=== PATIENT | male | born 1955 | race Caucasian/White ===

== ENCOUNTER 2018-03-10 10:30 | Outpatient (RCR) | payer BC, SELFPAY ==
--- NOTE | 2018-02-08 15:17 | HMH.PTOPEV ---
PT Outpatient Evaluation Rehab PT Outpatient Evaluation Start: 02/08/18 14:56 Freq: Status: Active Protocol: Document 02/08/18 14:56 DIONTEMO (Rec: 02/08/18 15:17 RADHA [id number]) Electronically Signed By Eduar Antoine, PT 02/08/18 14:56 Outpatient Therapy Subjective History Subjective History Patient is a 62 year old male presenting to outpatient PT with reports of L buttock pain of insidious onset starting 2 .5 weeks ago. Pt reports being treated by a chiropractor for 4 visits with no improvements noted. Pt reports pain is worse with sitting, hunching over or lifting. Hx of CABG, L shoulder pain. No diagnostics to report. Chief Complaint Pain Symptom Type Ache Sharp Shooting Symptoms Aggravated By Sitting Bending/Stooping Prior Functional Limitations None Current Functional Limitations Lifting Housework Sleeping Sitting Recreation Activity Bending/Stooping Symptom Description Constant but Variable Level of pain today (0-10) 5 Pain scale - at its best (0-10) 3 Pain scale - at its worst (0-10) 8 Lumbopelvic Eval Posture Lumbar Spine Posture Standing Position Decreased Lordosis Palapation tenderness left buttock tenderness Yes: piriformis Range of Motion Lumbar Spine Active Flexion Range of 58 Motion (degrees) Lumbar Spine Active Extension Range of 22 Motion (degrees) Left Lumbar Spine Lateral Flexion Active 25 Range of Motion (degrees) Right Lumbar Spine Lateral Flexion 25 Active Range of Motion (degrees) Lumbar Spine ROM Limitations Soft Tissue Tightness Manual Muscle Test Bilateral Knee Extension Strength Grade 5 Normal Knee Flexion Strength Grade 5 Normal Hip Flexion Strength Grade 5 Normal Hip Abduction Strength Grade 5 Normal Hip Adduction Strength Grade 5 Normal Hip External Rotation Strength Grade 5 Normal Hip Internal Rotation Strength Grade 5 Normal Hip Extension Strength Grade 5 Normal Extensor Hallucis Longus Strength Grade 5 Normal Ankle Dorsiflexion Strength Grade 5 Normal Gastronemius/Soleus Strength Grade 5 Normal DTR Rt Patellar 2+ Lt Lua
== END 2018-03-10 10:31 | disposition home or self-care (01) ==
LOC: PT 10:30
PROVIDERS: PCP Internal Medicine; Visit Provider Internal Medicine
DX: M54.5 Low back pain (principal)
CPT/HCPCS: 97010; 97012; 97014; 97110; 97140; 97163; G0283

== ENCOUNTER → 2018-03-23 14:31 | Outpatient (CLI) | payer BC, SELFPAY ==
--- NOTE | 2018-03-23 14:37 | XR_ITS ---
EXAM: XR lumbar spine min 4V HISTORY: ITS.REASON: BACK PAIN ORDERING PHYSICIAN: Bridger Chung PATIENT AGE: 62 years COMPARISON: None FINDINGS: There is minimal lumbar curvature convex left. Degenerative disc disease is present at T12-L1 L1-L2 and L5-S1. Mild facet arthritic changes are present at L4-L5 and L5-S1. No fracture or dislocation. No lytic or blastic change. There is some mild sclerosis of the left SI joint superiorly. Atherosclerotic calcification of the aorta noted. IMPRESSION: Lumbar spondylosis with degenerative disc disease and facet arthritic change
== END ==
PROVIDERS: PCP Internal Medicine; Visit Provider Internal Medicine
DX: M54.89 Other dorsalgia (principal)
CPT/HCPCS: 72110

== ENCOUNTER → 2022-03-17 12:56 | Outpatient (CLI) | payer MEDICARE, SELFPAY ==
[2022-03-17 14:02] LABS: Basophils # 0.1 K/mm3 (0-0.2); Eosinophils # 0.3 K/mm3 (0.0-0.4); Eosinophils % 4.5 % (0.1-12.0); Hematocrit 43.4 % (42.0-52.0); Hemoglobin 13.6 g/dL (14.1-18.0); Lymphocytes # 1.5 K/mm3 (0.7-4.5); Lymphocytes % 25.2 % (10-50); Mean Corpuscular HGB Conc 31.2 g/dL (31.8-35.4); Mean Corpuscular Hemoglobin 28.8 pg (27.0-31.2); Mean Corpuscular Volume 92.1 fl (80-94); Mean Platelet Volume 8.9 fl (7.4-10.4); Monocytes # 0.6 K/mm3 (0.1-1.0); Monocytes % 9.8 % (1.7-9.3); Neutrophils # 3.5 K/mm3 (1.8-7.8); Neutrophils % 59.4 % (37.0-80.0); Platelet Count 250 K/mm3 (142-424); Red Blood Count 4.72 M/mm3 (4.60-6.20); White Blood Count 5.8 K/mm3 (4.8-10.8)
[2022-03-17 14:46] LABS: Alanine Aminotransferase 38 U/L (12-78); Albumin Level 4.7 g/dl (3.5-5.0); Alkaline Phosphatase 61 U/L (38-126); Anion Gap 13.2 mEq/L (5-15); Aspartate Amino Transferase 49 U/L (17-59); Blood Urea Nitrogen 31 mg/dl (9-20); Calcium 9.6 mg/dl (8.4-10.2); Carbon Dioxide 26 mmol/L (22.0-30.0); Chloride 104 mmol/L (98-107); Chol/HDL Ratio 4.2 (1-3.5); Cholesterol 123 mg/dl (140-200); Estimated Glomerular Filt Rate 40 ml/min (>60); GFR (African American) 49 ML/MIN (>60); Globulin 2.3 g/dL (1.3-3.2); Glucose 107 mg/dl (74-100); HDL Cholesterol 29 mg/dl (40-60); Potassium 5.2 mmoL/L (3.5-5.1); Sodium 138 mmol/L (136-145); Triglycerides 162 mg/dl (30-150); VLDL Cholesterol 32 mg/dL (0-40)
[2022-03-17 15:02] LABS: T4 (Thyroxine) 5.6 ug/dl (5.53-11.0)
[2022-03-17 15:16] LABS: Prostate Specific Ag Screen 1.2 ng/ml (0.0-4.0); Thyroid Stimulating Hormone 4.84 uIU/mL (0.465-4.68)
[2022-03-19 10:07] LABS: Direct LDL Cholesterol 61 mg/dL (100-129)
[2022-03-19 11:12] LABS: Triiodothyronine (T3) Total 97 ng/dL (71-180)
== END ==
PROVIDERS: PCP Internal Medicine; Visit Provider Internal Medicine
DX: I25.10 Atherosclerotic heart disease of native coronary artery without angina pectoris (principal); I25.2 Old myocardial infarction; I10 Essential (primary) hypertension; R94.6 Abnormal results of thyroid function studies; E78.5 Hyperlipidemia, unspecified; N40.1 Benign prostatic hyperplasia with lower urinary tract symptoms; Z12.5 Encounter for screening for malignant neoplasm of prostate
CPT/HCPCS: 80053; 80061; 84436; 84443; 84480; 85025; G0103

== ENCOUNTER → 2023-06-23 12:02 | Outpatient (CLI) | payer MEDICARE, SELFPAY ==
[2023-06-23 13:51] LABS: Basophils # 0.1 K/mm3 (0-0.2); Eosinophils # 0.3 K/mm3 (0.0-0.4); Eosinophils % 4.2 % (0.1-12.0); Hematocrit 43.2 % (42.0-52.0); Hemoglobin 14.5 g/dL (14.1-18.0); Lymphocytes # 1.2 K/mm3 (0.7-4.5); Lymphocytes % 21.3 % (10-50); Mean Corpuscular HGB Conc 33.5 g/dL (31.8-35.4); Mean Corpuscular Hemoglobin 30.2 pg (27.0-31.2); Mean Corpuscular Volume 90.1 fl (80-94); Mean Platelet Volume 8.9 fl (7.4-10.4); Monocytes # 0.6 K/mm3 (0.1-1.0); Monocytes % 10.6 % (1.7-9.3); Neutrophils # 3.7 K/mm3 (1.8-7.8); Neutrophils % 62.9 % (37.0-80.0); Platelet Count 248 K/mm3 (142-424); Red Cell Distribution Width 15.6 % (11.5-17.5); White Blood Count 5.8 K/mm3 (4.8-10.8)
[2023-06-23 14:51] LABS: Alanine Aminotransferase 40 U/L (12-78); Albumin/Globulin Ratio 1.9 (1.1-1.8); Alkaline Phosphatase 52 U/L (38-126); Anion Gap 19.1 mEq/L (5-15); Aspartate Amino Transferase 46 U/L (17-59); Bilirubin,Total 0.6 mg/dl (0.2-1.3); Blood Urea Nitrogen 29 mg/dl (9-20); Calcium 9.4 mg/dl (8.4-10.2); Carbon Dioxide 25 mmol/L (22.0-30.0); Chloride 103 mmol/L (98-107); Chol/HDL Ratio 4.6 (1-3.5); Cholesterol 138 mg/dl (140-200); Estimated Glomerular Filt Rate 43 ml/min (>60); GFR (African American) 52 ML/MIN (>60); Globulin 2.6 g/dL (1.3-3.2); Glucose 106 mg/dl (74-100); HDL Cholesterol 30 mg/dl (40-60); Potassium 5.1 mmoL/L (3.5-5.1); Sodium 142 mmol/L (136-145); Total Protein,Serum 7.6 g/dl (6.3-8.2); Triglycerides 155 mg/dl (30-150); VLDL Cholesterol 31 mg/dL (0-40)
[2023-06-23 15:24] LABS: Prostate Specific Ag Screen 1.4 ng/ml (0.0-4.0)
== END ==
PROVIDERS: PCP Internal Medicine; Visit Provider Internal Medicine
DX: Z12.5 Encounter for screening for malignant neoplasm of prostate; I11.9 Hypertensive heart disease without heart failure; I25.10 Atherosclerotic heart disease of native coronary artery without angina pectoris; I25.2 Old myocardial infarction; K21.9 Gastro-esophageal reflux disease without esophagitis; N40.1 Benign prostatic hyperplasia with lower urinary tract symptoms
CPT/HCPCS: 80053; 80061; 85025; G0103

== ENCOUNTER 2024-06-28 11:16 | Outpatient (CLI) | payer MEDICARE, SELFPAY ==
[2024-06-28 10:46] LABS: Basophils # 0.1 K/mm3 (0-0.2); Basophils % 0.9 % (0.1-2.0); Eosinophils # 0.2 K/mm3 (0.0-0.4); Hematocrit 41.4 % (42.0-52.0); Hemoglobin 13.9 g/dL (14.1-18.0); Lymphocytes # 1.6 K/mm3 (0.7-4.5); Mean Corpuscular HGB Conc 33.5 g/dL (31.8-35.4); Mean Corpuscular Hemoglobin 28.9 pg (27.0-31.2); Mean Corpuscular Volume 86.3 fl (80-94); Mean Platelet Volume 7.8 fl (7.4-10.4); Monocytes # 0.5 K/mm3 (0.1-1.0); Monocytes % 8.7 % (1.7-9.3); Neutrophils # 3.6 K/mm3 (1.8-7.8); Neutrophils % 59.5 % (37.0-80.0); Platelet Count 207 K/mm3 (142-424); Red Blood Count 4.79 M/mm3 (4.60-6.20); Red Cell Distribution Width 15.7 % (11.5-17.5)
[2024-06-28 10:57] LABS: Alanine Aminotransferase 34 U/L (12-78); Albumin Level 4.7 g/dl (3.5-5.0); Albumin/Globulin Ratio 2.2 (1.1-1.8); Alkaline Phosphatase 53 U/L (38-126); Anion Gap 13.9 mEq/L (5-15); Aspartate Amino Transferase 41 U/L (17-59); Bilirubin,Total 0.8 mg/dl (0.2-1.3); Blood Urea Nitrogen 30 mg/dl (9-20); Calcium 9.2 mg/dl (8.4-10.2); Carbon Dioxide 25 mmol/L (22.0-30.0); Chloride 107 mmol/L (98-107); Chol/HDL Ratio 3.8 (1-3.5); Cholesterol 124 mg/dl (140-200); Estimated Glomerular Filt Rate 43 ml/min (>60); GFR (African American) 52 ML/MIN (>60); Globulin 2.1 g/dL (1.3-3.2); Glucose 107 mg/dl (74-100); HDL Cholesterol 33 mg/dl (40-60); Potassium 4.9 mmoL/L (3.5-5.1); Sodium 141 mmol/L (136-145); Total Protein,Serum 6.8 g/dl (6.3-8.2); Triglycerides 188 mg/dl (30-150); VLDL Cholesterol 38 mg/dL (0-40)
[2024-06-28 11:29] LABS: Prostate Specific Ag Screen 1.7 ng/ml (0.0-4.0)
== END 2024-06-28 23:59 | disposition home or self-care (01) ==
LOC: LAB.DROPOF 11:17
PROVIDERS: PCP Internal Medicine; Visit Provider Internal Medicine
DX: I10 Essential (primary) hypertension (principal); E78.5 Hyperlipidemia, unspecified; Z12.5 Encounter for screening for malignant neoplasm of prostate
CPT/HCPCS: 80053; 80061; 85025; G0103

== ENCOUNTER 2024-12-18 13:57 | Outpatient (CLI) | payer MEDICARE, SELFPAY ==
--- NOTE | 2024-12-18 14:10 | XR_ITS ---
FINAL REPORT CLINICAL HISTORY: Right 5th metatarsal pain COMPARISON: None FINDINGS: RIGHT FOOT Two views of the right foot were obtained. There is no acute fracture or dislocation. The joint spaces are well-preserved. There is no acute soft tissue abnormality. There is a moderate plantar spur. IMPRESSION: No acute abnormality identified. Reviewed, Interpreted and Dictated by Leonardo Costa MD Transcribed by Isabel Tinajero Authenticated and [facility]
== END 2024-12-18 23:59 | disposition home or self-care (01) ==
LOC: RAD 13:57
PROVIDERS: PCP Internal Medicine; Visit Provider Internal Medicine
DX: M77.31 Calcaneal spur, right foot (principal)
CPT/HCPCS: 73620

== ENCOUNTER 2025-06-27 09:40 | Outpatient (CLI) | payer MEDICARE, SELFPAY ==
--- OUTSIDE RECORDS SUMMARY | 2025-05-01 08:30 | XMS_ITS | Encounter Summary ---
Author Organization Healthcare Address [address] [place] [address] Care Team Providers Care Cook Helper Dessert Name Role Phone Bridger Chung MD Primary Care Provider [phone] Reason for Visit * Reason Comments Consult Encounter Details Date Type Department Care Team (Late st Contact Info) Description 05/01/2025 9:30 AM EDT Office Visit [facility] [address] [place] [address] Jenna Marcial M, DO [address] [place] [address] Left ankle pain, unspecified chronicity (Primary Dx); Achilles tendinitis, left leg Social History Tobacco Use Types Packs/Day Years Used Date Smoking Tobacco: Former Smokeless Tobacco: Never Alcohol Use Standard Drinks/Week Comments Never 0 (1 standard drink = 0.6 oz pur e alcohol) Sex and Gender Information Value Date Recorded Sex Assigned at Not on file Legal Sex Male 8:12 PM EDT Gender Identity Not on file Sexual Orientation Not on file documented as of this encounter Last Filed Vital Signs Vital Sign Reading Time Taken Comments Blood Pressure 119/81 05/01/2025 9:28 AM EDT Pulse 63 05/01/2025 9:28 AM EDT Temperature 36.5 C (97.7 F) 05/01/2025 9:28 AM EDT Respiratory Rate - - Oxygen Saturation 96% 05/01/2025 9:28 AM EDT Inhaled Oxygen Concentration - - Weight 108 kg (237 lb) 05/01/2025 9:28 AM EDT Height 177.8 cm (5' 10 ) 05/01/2025 9:28 AM EDT Body Mass Index 34.01 05/01/2025 9:28 AM EDT documented in this encounter Miscellaneous Notes * Parmindermaggie RefugioKOKOMARCOS Orivlle Marcial Jenna Tran, - 05/01/2025 10:11 AM EDT Images from the original note were not included. [id number] Understanding Achilles Tendonitis Achilles tendonitis is an overuse injury. It causes inflammation of the Achilles tendon. This tendon is found on the back of the ankle. It links the calf muscle to the heel bone. It helps you do pushing-off movements like running or standing on your toes. How to say it [id number]-[id number] What causes Achilles tendonitis? Achilles tendonitis can happen if you do an activity like running, walking, or jumping too much. This overuse can strain, or pull, the tendon. It may lead to minor tearing of the tendon. An injury tothe lower leg or foot can also cause it. A tight calf can cause it so if you don?t warm up before taking part in sports, such as basketball.Then you are more likely to suffer from this condition. You are also more prone to it if you do toomuch of such an activity too quickly. Correct training and rest can help prevent it. Symptoms of Achilles tendonitis The main symptom of Achilles tendonitis is pain. This pain mostly happens when you move the ankle. The tendon may also feel stiff after a period of no activity, such as sleeping. It may also become swollen. You may hear a crackling sound when you move your ankle. The tendon can become thick. And a bone spur may occur. Treatment for Achilles tendonitis Symptoms often get better after starting treatment. A full recovery may take several months. Treatments include: ? Rest. Stop or change the activity that caused the injury. The tendon will then have time to heal. ? Cold packs. This helps reduce pain and swelling. ? Prescription or [id number] medicines. These help reduce pain and swelling. ? Shoe inserts. These devices can reduce strain on the Achilles tendon when you move. You may then feel less pain. ? Stretching and strengthening exercises. Certain exercises can help you regain flexibility and strength in your Achilles tendon. ? Surgery. This choice can fix the injured tendon. But you won?t need to consider it unless other treatments don?t work. When to contact your doctor Contact your doctor right away if any of the following occur: ? Fever of 100.4??F (38??C) or higher, or as directed by your doctor ? Chills ? Pain that gets worse ? Symptoms that don?t get better, or that get worse ? New symptoms Last Reviewed Date: 2024 00:00:00 ?? [id number] The [employer]. All rights reserved. This information is not intended as a substitute for professional medical care. Always follow your healthcare professional's instructions. * Shadi Davis - Jenna Marcial DO - 05/01/2025 10:11 AM EDT Images from the original note were not included. [id number] Achilles Tendon: Exercises Introduction Here are some examples of exercises for you to try. The exercises may be suggested for a condition or for rehabilitation. Start each exercise slowly. Ease off the exercises if you start to have pain. You will be told when to start these exercises and which ones will work best for you. How to do the exercises Passive toe stretch 1. Sit on the floor, with the heel of your affected foot on the floor. Use one hand to hold your foot steady. 2. Using the thumb and index (pointing) finger of your other hand, slowly bend your toe forward andthen backward. Hold each position for about 15 seconds. 3. Repeat 2 to 4 times. Calf stretch (seated, knee straight) 1. Sit on the floor with your affected leg straight and resting on the floor. 2. Place a towel around your affected foot. 3. Hold one end of the towel in each hand. 4. Pull back gently with the towel so that you feel a stretch in your calf. 5. Hold the position for 15 to 30 seconds. 6. Repeat 2 to 4 times. 7. It's a good idea to repeat these steps with your other leg. Calf stretch (back knee straight) 1. Stand facing a wall with your hands on the wall. You can also do this with your hands on the back of a chair, a counter, or a tree. 2. Put one leg about a step behind your other leg, with your toes pointing forward. 3. Keeping your back leg straight and your back heel on the floor, bend your front knee and gently bring your hip and chest toward the wall until you feel a stretch in the calf of your back leg. 4. Hold the stretch for 15 to 30 seconds. 5. Repeat 2 to 4 times for each leg. Calf stretch on a step 1. Stand on the bottom step of a staircase, facing up toward the stairs. Put the balls of your feeton the step. Hold on to the handrail or wall. 2. Slowly let your heels down over the edge of the step as you relax your calf muscles. You should feel a gentle stretch up the back of your leg to your knee. 3. Hold the stretch about 15 to 30 seconds, and then tighten your calf muscle a little to bring your heel back up to the level of the step. 4. Repeat 2 to 4 times. Heel raise on a step 1. Stand on the bottom step of a staircase, facing up toward the stairs. Put the balls of your feeton the step. If you are not steady on your feet, hold on to the handrail or wall. 2. Keeping both knees straight, slowly lift your heels above the step so that you are standing on your toes. Then slowly lower your heels below the step and toward the floor. 3. Return to the starting position, with your feet even with the step. 4. Repeat 8 to 12 times. Follow-up care is a gonzalez part of your treatment and safety. Be sure to make and go to all appointments, and call your doctor if you are having problems. It's also a good idea to know your test resultsand keep a list of the medicines you take. Current as of: February 22, 2023 Content Version: 14.0 Care instructions adapted under license by your healthcare professional. If you have questions about a medical condition or this instruction, always ask your healthcare professional. [employer] disclaims any warranty or liability for your use of this information. ?? [id number] [employer]. * Progress Notes - Jenna Marcila DO - 05/01/2025 9:30 AM EDT Images from the original note were not included. Sports Medicine [facility] Note Subjective: Subjective Leon Lin is a 69 y.o. male who presents for Consult of the Left Ankle History of Present Illness The patient is a 69-year-old male who presents today with left ankle pain. He states that he was previously seen at urgent care and diagnosed with Achilles tendinitis. Approximately 10 days ago on a Wednesday, he misstepped on a half brick while descending stairs, resulting in an inverted roll of his left ankle. Initially, he experienced no discomfort, but after standing on it for about 4 hours on the following Wednesday, he began to feel soreness and tenderness at the base of his ankle. An x-ray taken at an urgent care facility suggested a possible bone spur. He has been applying ice to the affected area every 2 hours for 20 minutes since last Wednesday. His pain management regimen includes two Tylenol in the morning, two Advil at lunchtime, and two Tylenol PM atnight. He also took two Advil in the morning and one Tylenol PM last night, which he reports helpedhim get through the day without significant pain. He estimates that his pain has improved by 50 percent. He has been using peas as a makeshift ice pack, which he finds more comfortable than traditional ice. He works from home and has been trying to keep his foot elevated as much as possible. He hasbeen performing toe crunches, doing 500 repetitions daily. He has been gradually increasing the pres sure on his foot each day and uses a wrap after icing. He is interested in trying home exercises first before considering formal physical therapy. He takes statins and 10 mg Altace for blood pressure. He had a heart attack in 1996. 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 Medications Patient's Medications New Prescriptions No medications on file Previous Medications ASPIRIN 81 MG EC TABLET Take 1 tablet (81 mg) by mouth 1 (one) time each day. EZETIMIBE (ZETIA) 10 MG TABLET Take 1 tablet (10 mg) by mouth 1 (one) time each day. RAMIPRIL (ALTACE) 10 MG CAPSULE Take 1 capsule by mouth daily. ROSUVASTATIN (CRESTOR) 20 MG TABLET Take 1 tablet (20 mg) by mouth every night. Modified Medications No medications on file Discontinued Medications No medications on file Surgical History Surgical History[1] Allergies Allergies[2] Objective: Visit Vitals BP 119/81 Pulse 63 Temp 36.5 ??C (97.7 ??F) Ht 1.778 m (5' 10 ) Wt 108 kg (237 lb) SpO2 96% BMI 34.01 kg/m?? Smoking Status Former BSA 2.31 m?? GEN: Alert, cooperative, in no acute distress. MSK: Left Ankle --Inspection: No erythema, ecchymosis, or swelling appreciated. --Palpation: No tenderness to palpation over the medial or lateral malleolus. No tenderness to palpation over the talus, tarsals, metatarsals, or phalanges. TTP over the distal achilles at the insertion of the achilles. --Range of motion: 0-10 degrees dorsiflexion, 0-50 degrees plantarflexion, 0-20 degrees inversion, 0-10 degrees eversion. --Strength: 5/5 strength with dorsiflexion, plantarflexion, inversion, and eversion. No pain with resisted testing. --Neurovascular: Sensation intact to light touch. 2+ DP and PT pulses. --Special Tests: No laxity with anterior drawer or talar tilt. No pain with external rotation or squeeze testing. No tenderness with syndesmotic ligament palpation. Results Imaging - X-rays of the left ankle and foot: personally reviewed by me. No evidence of acute fx or dislocation. Enthesophyte at the insertion of the achilles. Assessment and Plan: Diagnosis Plan 1. Left ankle pain, unspecified chronicity XR Ankle Left 3+ Views Orthotic Brace 2. Achilles tendinitis, left leg Orthotic Brace Orders Placed This Encounter Orthotic Brace XR Ankle Left 3+ Views Assessment & Plan 1. Insertional Achilles tendinitis: The condition involves irritation of the Achilles tendon at its insertion point on the calcaneus, accompanied by a bone spur. This is likely due to chronic tightness and pulling, which can occur withage. A boot will be provided for use over the next week, with an expectation of improvement. He is advised to remove the boot several times daily to perform exercises and apply ice. Diclofenac gel (Voltaren) can be applied to the affected area. He should continue taking Tylenol and Advil as needed.A home exercise program was printed out, and he is encouraged to perform these exercises multiple times daily outside of the boot. If there is no significant improvement, the treatment plan may need to be adjusted. If he experiences significant pain, the boot may be required for an additional week.If his condition improves significantly within a week, he can discontinue the use of the boot and reschedule his appointment for a month later. Follow-up: A follow-up appointment is scheduled for 1 week from now. Patient verbalized understanding of the plan and were agreeable with no further questions. Records Reviewed: Plain Radiographs., Prior office visits., and Emergency department visit. Verbal consent was obtained to use ambient listening technology to assist in the documentation of the encounter: yes Electronically Signed by: Jenna Marcial DO - 05/01/2025 [1] Past Surgical History: Procedure Laterality Date CORONARY ARTERY BYPASS GRAFT N/A Coronary Artery Triple Bypass Graft from Zettaset [2] No Known Allergies documented in this encounter Plan of Treatment Scheduled Orders Name Type Priority Associated Diagnoses Orde r Schedule XR Ankle Left 3+ Views Imaging Routine Left ankle pain, unspecified chronicity 1 Occurrences starting 05/01/2025 until 11/02/2026 documented as of this encounter Visit Diagnoses Diagnosis Left ankle pain, unspecified chronicity- Primary Achilles tendinitis, left leg documented in this encounter Additional Health Concerns Assessment Noted Time A fall risk assessment has been complete d for the patient 05/01/2025 9:27 AM EDT A Body Mass Index follow-up plan has been documented for the patient 05/01/2025 10:28 AM EDT documented as of this encounter Care Teams Cook Helper Dessert Relationship Specialty Start Date End Date Bridger Chung MD [address] [place] [address] [address] CRISTIAN Duckworth [id number] PCP - General 12/20/20 documented as of this encounter
[2025-06-27 14:16] LABS: Hematocrit 42.3 % (42.0-52.0); Hemoglobin 13.6 g/dL (14.1-18.0); Immature Granulocytes % 0.1 %; Mean Corpuscular HGB Conc 32.2 g/dL (31.8-35.4); Mean Corpuscular Hemoglobin 28.9 pg (27.0-31.2); Mean Corpuscular Volume 89.8 fl (80-94); Nucleated Red Blood Cells % 0 %; Platelet Count 229 K/mm3 (142-424); Red Blood Count 4.71 M/mm3 (4.60-6.20); Red Cell Distribution Width-SD 47.0 fL; White Blood Count 7.1 K/mm3 (4.8-10.8)
[2025-06-27 15:20] LABS: Alanine Aminotransferase 32 U/L (12-78); Albumin Level 5.1 g/dl (3.5-5.0); Albumin/Globulin Ratio 2.3 (1.1-1.8); Alkaline Phosphatase 56 U/L (38-126); Anion Gap 16.1 mEq/L (5-15); Aspartate Amino Transferase 42 U/L (17-59); Bilirubin,Total 0.8 mg/dl (0.2-1.3); Blood Urea Nitrogen 25 mg/dl (9-20); Calcium 9.8 mg/dl (8.4-10.2); Carbon Dioxide 25 mmol/L (22.0-30.0); Chloride 103 mmol/L (98-107); Cholesterol 121 mg/dl (140-200); Creatinine,Serum 1.70 mg/dl (0.66-1.25); Estimated Glomerular Filt Rate 40 ml/min (>60); GFR (African American) 48 ML/MIN (>60); Globulin 2.2 g/dL (1.3-3.2); Glucose 107 mg/dl (74-100); HDL Cholesterol 32 mg/dl (40-60); Potassium 5.1 mmoL/L (3.5-5.1); Sodium 139 mmol/L (136-145); Total Protein,Serum 7.3 g/dl (6.3-8.2); Triglycerides 176 mg/dl (30-150)
--- OUTSIDE RECORDS SUMMARY | 2025-06-28 10:42 | XMS_ITS | Clinical Summary ---
Author Organization [facility] Address [address] [id number] Care Team Providers Care Metallurgical Engineering Technician Name Role Phone Bridger Chung MD Primary Care Provider [phone] Allergies No known active allergies Medications ezetimibe (Zetia) 10 MG tablet Take 1 tablet (10 mg) by mouth 1 (one) time each day. Active aspirin 81 MG EC tablet Take 1 tablet (81 mg) by mouth 1 (one) time each day. Active rosuvastatin (Crestor) 20 MG tablet Take 1 tablet (20 mg) by mouth every night. Active ramipril (Altace) 10 MG capsule Take 1 capsule by mouth daily. 02/19/2025 Active Active Problems No known active problems Encounters Date Type Department Care Team Description 05/01/2025 9:30 AM EDT Office Visit [facility] [address] [place] [address] Jenna Marcial, Left ankle pain, unspecified chronicity (Primary Dx); Achilles tendinitis, left leg 05/01/2025 Travel from Last 3 Months Family History Medical History Relation Name Comments Cardiac disorder Brother 1 Hyperlipidemia Brother 2 Cardiac disorder Father Cataracts Mother Relation Name Status Comments Brother 1 Brother 2 Father Mother Social History Tobacco Use Types Packs/Day Years Used Date Smoking Tobacco: Former Smokeless Tobacco: Never Alcohol Use Standard Drinks/Week Comments Never 0 (1 standard drink = 0.6 oz pur e alcohol) Sex and Gender Information Value Date Recorded Sex Assigned at Not on file Legal Sex Male 8:12 PM EDT Gender Identity Not on file Sexual Orientation Not on file Last Filed Vital Signs Vital Sign Reading [...] Mass Index 34.01 05/01/2025 9:28 AM EDT Plan of Treatment Health Maintenance Due Date Last Done Comments [facility]-Depression Screening 1955 [facility]-Hepatitis C Screening 1955 [facility]-Medicare Annual Wellness (AWV) 1955 [facility]-Infant/Child/Adol SDOH Screenings 1955 [facility]- SDOH Screenings 1971 [facility]-Adult SDOH Screenings 1971 [facility]-DTaP,Tdap,and Td Vaccines (1 - Tdap) 1972 CT Colonography 1998 Colonoscopy 1998 FIT-DNA 1998 FIT 1998 FOBT 1998 Sigmoidoscopy 1998 [facility]-Colorectal Cancer Screening 1998 [facility]-Pneumococcal Vaccine: 50+ Years (1 of 1 - PCV) 2003 [facility]-Zoster Vaccines (1 of 2) 2003 [facility]-Abdominal Aortic Aneurysm (AAA) Screening 2018 [facility]-31 Vaccine ( season) 2025 05/21/2024, 05/11/2023, 04/30/2022, Additional history exists [facility]-Influenza Vaccine (#1) 2025 06/28/2024 [facility]-RSV Vaccine: 60+ Years or Completed 05/11/2023 [facility]-Obesity Intervention Completed 05/01/2025, 09/09 HPV Vaccines Aged Out No longer eligi ble based on patient's age to complete this topic [facility]-HIB Vaccines Aged Out No longer e ligible based on patient's age to complete this topic [facility]-Hepatitis A Vaccines Aged Out No longer eligible based on patient's age to complete this topic [facility]-IPV Vaccines Aged Out No longer e ligible based on patient's age to complete this topic [facility]-Rotavirus Vaccines Aged Out No lo nger eligible based on patient's age to complete this topic Insurance MEDICARE Care Teams Metallurgical Engineering Technician Relationship Specialty Start Date End Date Bridger Chung MD [address] [facility] [address] [place] [address] PCP - General 12/20/20
--- OUTSIDE RECORDS SUMMARY | 2025-06-28 10:42 | XMS_ITS | Encounter Summary ---
Author Organization Healthcare Address [address] [place] [address] Care Team Providers Care Keeler Polygraph Operator Name Role Phone Bridger Chung MD Primary Care Provider Encounter Details Date Type Department Care Team (Latest Contact Info) Description 05/01/2025 Travel Social History Tobacco Use Types Packs/Day Years [...] on file documented as of this encounter Plan of Treatment Not on file documented as of this encounter Visit Diagnoses Not on filedocumented in this encounter Additional Health Concerns Assessment Noted Time A fall risk assessment has been complete d for the patient 05/01/2025 9:27 AM EDT A Body Mass Index follow-up plan has been documented for the patient 05/01/2025 10:28 AM EDT documented as of this encounter Care Teams Keeler Polygraph Operator Relationship Specialty Start Date End Date Bridger Chung MD [address] [place] [address] [address] [place] [address] PCP - General 12/20/20 documented as of this encounter
--- OUTSIDE RECORDS SUMMARY | 2025-06-28 10:42 | XMS_ITS | Clinical Summary ---
[facility] Address [address] [place] [address] Care Team Providers Care Grades 1 Thru 6 Home Teacher Name Role Phone Bridger Chung MD Primary Care Provider [phone] Allergies No known active allergies Medications aspirin 81 MG EC tablet Take 1 tablet by mouth Daily. Active esomeprazole (nexIUM) 20 MG capsule Take 1 capsule by mouth Every Morning Before Breakfast. Active ramipril (ALTACE) 10 MG capsule Take 1 capsule by mouth Daily. Active rosuvastatin (CRESTOR) 20 MG tablet Take 1 tablet by mouth Every Night. Active ezetimibe (ZETIA) 10 MG tablet Take 1 tablet by mouth Daily. Active Active Problems Problem Noted Date Diagnosed Date HNP (herniated nucleus pulposus), lumbar 018 Overview (05/13/2018): Added automatically from request for surgery [id number] Encounters Date Type Department Care Team Description 04/25/2025 8:52 AM EDT - 04/25/2025 9:47 AM EDT Hospital Encounter [facility] [address] [place] [address] Tamera Qiu V, Pain of left heel (Primary Dx); Achilles tendinitis of left lower extremity Discharge Disposition: Home or Self Care 04/25/2025 Travel from Last 3 Months Family History Medical History Relation Name Comments Heart disease Father Parkinsonism Mother Relation Name Status Comments Father Mother Social History Tobacco Use Types Packs/Day Years Used Date Smoking Tobacco: Former Smokeless Tobacco: Never Comments:QUIT 30 YEARS AGO Alcohol Use Standard Drinks/Week Comments Yes 1 (1 standard drink = 0.6 oz pur e alcohol) RED WINE TWICE WEEKLY AT MOST Abuse Screen Answer Date Recorded Unsafe at Home or Work/School Not on file Feels Threatened by Someone? Not on file 04/2023 Does Anyone Keep You from Co ntacting Others or Doint Things Outside the Home? Not on file 05/17/2023 Physical Sign of Abuse Present Not on file 1 Housing Stability Answer Date Recorded Current Living Arrangements Not on file 04/2023 Potentially Unsafe Housing Conditions Not on abigail e 05/17/2023 Family and Community Support Answer Buddy e Recorded Help with Day-to-Day Activities Not on file 05/17/2023 Lonely or Isolated Not on file 05/17/2023 Employment Answer Date Recorded Do you want help finding or keeping work or a epi b? Not on file 05/17/2023 Disabilities Answer Date Recorded Concentrating, Remembering, or Making Decisions Difficulty Not on file 05/17/2023 Doing Errands Independently Difficulty Not on fi le 05/17/2023 Education Answer Date Recorded Help with school or training? Not on file Preferred Language Not on file 05/17/2023 Sex and Gender Information Value Date Recorded Sex Assigned at Not on file Legal Sex Male 11:08 AM EDT Gender Identity Not on file Sexual Orientation Not on file Last Filed Vital Signs Vital Sign Reading Time Taken Comments Blood Pressure 150/98 04/25/2025 8:59 AM EDT Pulse 68 04/25/2025 8:59 AM EDT Temperature 36.6 C (97.9 F) 04/25/2025 8:59 AM EDT Respiratory Rate 18 04/25/2025 8:59 AM EDT Oxygen Saturation 98% 04/25/2025 8:59 AM EDT Inhaled Oxygen Concentration - - Weight 108 kg (237 lb) 04/25/2025 8:59 AM EDT Height 177.8 cm (5' 10 ) 04/25/2025 8:59 AM EDT Body Mass Index 34.01 04/25/2025 8:59 AM EDT Plan of Treatment Health Maintenance Due Date Last Done Comments TDAP/TD VACCINES (1 - Tdap) 1972 COLOGUARD 1998 COLON CANCER SCREENING 5 YEA R SIGMOIDOSCOPY 1998 CT COLONOGRAPHY 1998 FECAL OCCULT BLOOD TEST 1998 FIT Testing (1 year) 1998 Pneumococcal Vaccine 50+ (1 of 1 - PCV) 2003 ZOSTER VACCINE (1 of 2) 2003 ANNUAL WELLNESS VISIT 04/20/2017 HEPATITIS C SCREENING 04/20/2017 AAA SCREEN ONCE 2018 INFLUENZA VACCINE 03/09/2025 06/28/2024 COVID-19 Vaccine (6 - Pfizer risk 2023- season) 2025 05/21/2024, 05/11/2023, 04/30/2022, Additional history exists COLONOSCOPY 08/15/2031 08/15/2021, 04/29/2017 COLORECTAL CANCER SCREENING 08/15/2031 Procedures Procedure Name Priority Date/Time Associated Diagnosis Comments XR FOOT 3+ VW LEFT STAT 04/25/2025 9: 32 AM EDT Pain of left heel XR ANKLE 3+ VW LEFT STAT 04/25/2025 9 :32 AM EDT Pain of left heel SCANNED - COLONOSCOPY 08/15/2021 from Last 3 Months or Most Recently Relevant to Health Maintenance Results * XR Foot 3+ View Left (04/25/2025 9:32 AM EDT) Anatomical Region Laterality Modality Lower Extremities, Foot Left Radiogra [facility] Imaging 04/25/2025 9:56 AM EDT Impressions 04/25/2025 9:58 AM EDT Impression: No acute osseous findings of the ankle or foot. Electronically Signed: Terell Galloway MD 04/25/2025 9:58 AM EDT Workstation ID: [id number] DxDesc DxDesc Narrative 04/25/2025 9:58 AM EDT XR ANKLE 3+ VW LEFT, XR FOOT 3+ VW LEFT Date of Exam: 04/25/2025 9:16 AM EDT Indication: ankle pain. Comparison: None available. Findings: Negative for displaced fracture or joint malalignment. Symmetric appearance of the ankle mortise. Talar dome unremarkable. Mild degenerative osteoarthritis of the hindfoot. Small Achilles and plantar spurs. Typical distribution degenerative osteoarthritis of the foot mild to moderate severity in the midfoot, otherwise mild at other joint spaces. No erosions or chondrocalcinosis. Soft tissues appear unremarkable. Procedure Note Terell Galloway MD - 04/25/2025 XR ANKLE 3+ VW LEFT, XR FOOT 3+ VW LEFT Date of Exam: 04/25/2025 9:16 AM EDT Indication: ankle pain. Comparison: None available. Findings: Negative for displaced fracture or joint malalignment. Symmetricappearance of the ankle mortise. Talar dome unremarkable. Milddegenerative osteoarthritis of the hindfoot. Small Achilles and plantarspurs. Typical distribution degenerative osteoarthritis of the foot mild to moderate severity in the midfoot,otherwise mild at other joint spaces. No erosions or chondrocalcinosis.Soft tissues appear unremarkable. IMPRESSION: Impression: No acute osseous findings of the ankle or foot. Electronically Signed: Terell Galloway MD 04/25/2025 9:58 AM EDT Workstation ID: [id number] DxDesc DxDesc Tamera Contreras DO IMG DIAGNOSTIC IMAGI NG ORDERABLES Final Result * XR Ankle 3+ View Left (04/25/2025 9:32 AM EDT) Anatomical Region Laterality Modality Lower Extremities, Ankle Left Radiogr aphic Imaging 04/25/2025 9:56 AM EDT Impressions 04/25/2025 9:58 AM EDT Impression: No acute osseous findings of the ankle or foot. Electronically Signed: Terell Galloway MD 04/25/2025 9:58 AM EDT Workstation ID: [id number] DxDesc DxDesc Narrative 04/25/2025 9:58 AM EDT XR ANKLE 3+ VW LEFT, XR FOOT 3+ VW LEFT Date of Exam: 04/25/2025 9:16 AM EDT Indication: ankle pain. Comparison: None available. Findings: Negative for displaced fracture or joint malalignment. Symmetric appearance of the ankle mortise. Talar dome unremarkable. Mild degenerative osteoarthritis of the hindfoot. Small Achilles and plantar spurs. Typical distribution degenerative osteoarthritis of the foot mild to moderate severity in the midfoot, otherwise mild at other joint spaces. No erosions or chondrocalcinosis. Soft tissues appear unremarkable. Procedure Note Terell Galloway MD - 04/25/2025 XR ANKLE 3+ VW LEFT, XR FOOT 3+ VW LEFT Date of Exam: 04/25/2025 9:16 AM EDT Indication: ankle pain. Comparison: None available. Findings: Negative for displaced fracture or joint malalignment. Symmetricappearance of the ankle mortise. Talar dome unremarkable. Milddegenerative osteoarthritis of the hindfoot. Small Achilles and plantarspurs. Typical distribution degenerative osteoarthritis of the foot mild to moderate severity in the midfoot,otherwise mild at other joint spaces. No erosions or chondrocalcinosis.Soft tissues appear unremarkable. IMPRESSION: Impression: No acute osseous findings of the ankle or foot. Electronically Signed: Terell Galloway MD 04/25/2025 9:58 AM EDT Workstation ID: [id number] DxDesc DxDesc Tamera Contreras DO IMG DIAGNOSTIC IMAGI NG ORDERABLES Final Result * SCANNED - COLONOSCOPY (08/15/2021) Clay Mukherjee MD CHART REVIEW TABS Final Result from Last 3 Months or Most Recently Relevant to Health Maintenance Insurance [id number] MEDICARE REPLACE [facility] MEDICARE ADVANTAGE HMO NON PAR Advance Directives Documents on File Type Date Recorded Patient Executive Compensation Analyst Expl anation LIVING WILL - SCAN 06/13/2018 8:38 AM MESHA NG WILL 05/26/2018 POWER OF RESIDENTIAL DESIGNER - SCAN 06/13/2018 8:38 AM POWER OF RESIDENTIAL DESIGNER 05/26/2018 Healthcare Agents on File Name Relationship Healthcare Agent [employer] p Communication Alie Lin Spouse Power of Food Cooking Machine Operator for Healt hcare Care Teams Grades 1 Thru 6 Home Teacher Relationship Specialty Start Date End Date Bridger Chung MD [address] [facility] [address] [id number] PCP - General Internal Medicine 04/16/17
== END 2025-06-27 23:59 ==
LOC: LAB.DROPOF 06-28 09:42
PROVIDERS: PCP Internal Medicine; Visit Provider Internal Medicine
DX: E78.5 Hyperlipidemia, unspecified (principal); I10 Essential (primary) hypertension; M15.0 Primary generalized (osteo)arthritis; I25.10 Atherosclerotic heart disease of native coronary artery without angina pectoris
CPT/HCPCS: 80053; 80061; 85025